=== PATIENT | female | born 1985 | race African-American/Black ===

== ENCOUNTER 2016-08-02 17:19 | Inpatient (IN) | payer MEDICAID ==
[~2016-08-02] VITALS: Ht 175.3 cm; Wt 129.3 kg
[2016-08-02] MEDS: LACTATED RINGER'S 1000 ML INJ 1,000 ML IV SCH (18:40)
[2016-08-02 18:58] LABS: AUTOMATED NEUTROPHIL # 8.1 TH/MM3 (1.8-7.7); BASOPHIL # 0.1 TH/MM3 (0-0.2); BASOPHIL % 0.6 % (0.0-2.0); EOSINOPHIL # 0.1 TH/MM3 (0-0.4); EOSINOPHIL % 0.8 % (0.0-4.0); HEMATOCRIT 31.3 % (35.0-46.0); LYMPH % 25.6 % (9.0-44.0); LYMPHOCYTE # 3.2 TH/MM3 (1.0-4.8); MEAN CELL VOLUME 70.8 FL (80.0-100.0); MEAN CORPUSCULAR HEMOGLOBIN 21.8 PG (27.0-34.0); MEAN CORPUSCULAR HGB CONC 30.8 % (32.0-36.0); MONO % 7.9 % (0.0-8.0); NEUT % 65.1 % (16.0-70.0); PLATELET COUNT 369 TH/MM3 (150-450); RED BLOOD COUNT 4.43 MIL/MM3 (4.00-5.30); RED CELL DISTRIBUTION WIDTH 16.8 % (11.6-17.2); WHITE BLOOD COUNT 12.4 TH/MM3 (4.0-11.0)
[2016-08-02 19:01] LABS: HEMO FLAGS AUTO DIFF
[2016-08-02 19:24] LABS: URIC ACID 3.6 MG/DL (2.6-6.0)
[2016-08-02] MEDS ORDERED: LABETALOL HCL 100 MG/20 ML VIAL IV ONE (19:30)
[2016-08-02 19:43] LABS: OVALOCYTES 1+ (NORMAL); SCAN/DIFF AUTO DIFF CONFIRMED; TEARDROP RBCS 1+ (NORMAL)
[2016-08-02] MEDS ORDERED: LABETALOL HCL 100 MG/20 ML VIAL IV PRN (19:45)
[2016-08-02] MEDS ORDERED: NIFEdipine 10 MG CAP ONE (20:18)
[2016-08-02 20:43] LABS: CHLAMYDIA PCR NOT DETECTED (NOT DETECT); NEISSERIA PCR NOT DETECTED (NOT DETECT)
[2016-08-02] MEDS ORDERED: NIFEdipine 20 MG CAP PO PRN (20:45)
[2016-08-02] MEDS ORDERED: SODIUM CHLORIDE 0.9% FLUSH 10 ML FLUSH IV FLUSH PRN ×2 (20:45)
[2016-08-02] MEDS ORDERED: ACETAMINOPHEN 325 MG TAB PO PRN (20:45)
[2016-08-02] MEDS ORDERED: NIFEdipine 10 MG CAP PO ONE (20:45)
[2016-08-02] MEDS ORDERED: ONDANSETRON ODT 4 MG TAB PO PRN (20:45)
[2016-08-02 21:42] LABS: ANION GAP 10 MEQ/L (5-15); BLOOD UREA NITROGEN 16 MG/DL (7-18); CHLORIDE 107 MEQ/L (98-107); GLOMERULAR FILTRATION RATE 114 ML/MIN (>89); POTASSIUM 4.1 MEQ/L (3.5-5.1); SODIUM (NA) 137 MEQ/L (136-145)
[2016-08-02 21:45] LABS: ALKALINE PHOSPHATASE 73 U/L (45-117); ALT (GPT) 16 U/L (10-53); AST (GOT) 17 U/L (15-37); TOTAL BILIRUBIN ADULT 0.1 MG/DL (0.2-1.0)
[2016-08-03] VITALS (191 sets, daily range): BP systolic 107–191; BP diastolic 50–103; PULSE 67–114; RESP 16–20; TEMP 97.4–98.4; O2SAT 96–100
[2016-08-03] MEDS: LACTATED RINGER'S 1000 ML INJ 1,000 ML IV SCH (06:45)
[2016-08-03] MEDS ORDERED: NIFEdipine 10 MG CAP PO ONE (07:15)
[2016-08-03] MEDS ORDERED: ACETAMIN 325 MG/BUTALBITAL 50 MG/CAFFEINE 40 MG TAB PO PRN (07:15)
[2016-08-03] MEDS ORDERED: MAGNESIUM SULFATE 4 GM PREMIX 100 ML ONE (08:10)
[2016-08-03] MEDS ORDERED: LACTATED RINGER'S 1000 ML INJ 1,000 ML IV SCH ×2 (08:30→17:00)
[2016-08-03] MEDS ORDERED: CALCIUM GLUCONATE 10% 1 GM/10 ML VIAL IV PRN (08:30)
[2016-08-03] MEDS ORDERED: MAGNESIUM SULFATE 4GRAM PRMIX-LOAD DOSE IV ONE (08:30)
[2016-08-03] MEDS: MAGNESIUM SULFATE 40 GM PREMIX 1,000 ML IV SCH (08:49)
[2016-08-03] MEDS ORDERED: MULTIVIT/MIN/PREN/FOL AC/IRON PRENATAL TAB PO SCH (09:00)
[2016-08-03] MEDS ORDERED: LABETALOL HCL 100 MG/20 ML VIAL ONE (10:52)
[2016-08-03] MEDS ORDERED: LABETALOL HCL 100 MG/20 ML VIAL IV ONE ×2 (11:00→17:00)
[2016-08-03] MEDS ORDERED: hydrALAZINE HCL 20 MG/ML VIAL ONE (11:42)
[2016-08-03 11:46] LABS: AMPHETAMINE, URINE NEG (NEG); BARBITURATES, URINE NEG (NEG); COCAINE, URINE NEG (NEG)
[2016-08-03] MEDS ORDERED: LACTATED RINGER'S 1000 ML IV SCH (12:00)
[2016-08-03] MEDS ORDERED: LACTATED RINGER'S 1000 ML IV ONE (12:00)
[2016-08-03] MEDS ORDERED: ceFAZolin 2 GM PREMIX 50 ML IV SCH (12:00)
[2016-08-03] MEDS ORDERED: hydrALAZINE HCL 20 MG/ML VIAL IV ONE (12:00)
[2016-08-03] MEDS ORDERED: CITRIC ACID-SODIUM CITRATE LIQ 30 ML UDC PO SCH (12:00)
--- NOTE | 2016-08-03 12:18 | MH ---
cc: ERICKSON HODGSON M.D. DATE OF ADMISSION 08/02/2016 HISTORY The patient is a 30-year-old black female G3, P1-0-1-1 at approximately 28 weeks and 5 days of . She started her care with Keisha Hopkins, a lay middle school guidance counselor and I started caring for her a little over 10 days ago after meeting her through emergency room covered call at [facility]. At that time, she was 27+ weeks. We diagnosed her with mild preeclampsia with a 24-hour urine collection revealing 700 mg and slightly elevated blood pressures. She was also noted to have a low normal fluid with an AYDEN of 6 and an estimated gestational age and weight measuring about two weeks behind what should be. The patient has consistent periods and had an 18-week ultrasound consistent with her dating. I have been following her as an outpatient since that time with serial urine collection, blood work and testing and when she presented to the office on August 02 for her routine NST and her blood pressure was noted to be elevated in the range of 160-186 over the low 100. At this time, I have recommended that the patient be admitted due to worsening preeclampsia. Her most recent urine collection this past Saturday revealed 1.7 grams. Her blood were continues to be normal. Her amniotic fluid index was 10-1/2. Her estimated weight on Saturday was 2 pounds 2 ounces. The patient has been feeling good at home on bedrest. She denies headaches, changes in vision or nausea or vomiting. PAST MEDICAL HISTORY Past medical history on the patient is negative. PAST SURGICAL HISTORY Gastric bypass in 2006 MEDICATIONS vitamins. ALLERGIES None SOCIAL HISTORY No tobacco, alcohol or drug use. 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 FAMILY HISTORY Family history of diabetes. GYNECOLOGIC HISTORY No abnormal Pap's. She did have a history of syphilis in the past and she had full treatment. OBSTETRICAL HISTORY In 2012, she had a viable female 6 pounds 11 ounces without complication. She also had one early miscarriage. PHYSICAL EXAM On physical exam, her weight is 285, her blood pressure in the office was 170/100, pulse of 70. BREASTS: Without masses, nodes or discharge. CHEST: Clear to auscultation bilaterally. CARDIAC: Regular rate and rhythm without murmur, rub or gallop. ABDOMEN: Gravid, nontender, nondistended. No hepatosplenomegaly. No CVA tenderness. Fundal height is about 28. PELVIC: Cervix is closed and thick. Presenting part is high. LABORATORY VALUES A 24-hour urine has been restarted. CBC, LFTs and uric acid have been ordered from the office this week. Her most recent AYDEN of 10.5. Estimated weight 2 pounds 2 ounces. ASSESSMENT/PLAN The patient has worsening preeclampsia at this time severe by blood pressure. We will admit, do 24-hour monitoring of the fetus, collect urine again, redo blood work and manage blood pressure as needed. The patient is aware that most likely she will be delivered with this admission. MD NENITA Alston/DAVID /11:46 AM /12:08 PM
[2016-08-03] MEDS ORDERED: OXYTOCIN 10 UNIT/ML AMP ONE (12:33)
[2016-08-03] MEDS ORDERED: RESP: CALFACTANT 3 ML VIAL ONE (12:54)
[2016-08-03] MEDS ORDERED: ACETAMINOPHEN 1000 MG/100 ML VIAL IV ONE (12:56)
[2016-08-03] MEDS ORDERED: MORPHINE SULFATE PF 5 MG/10 ML VIAL ONE (13:53)
[2016-08-03] MEDS ORDERED: OXYTOCIN 30 UNITS-500ML PREMIX 500 ML ONE (14:27)
[2016-08-03 15:01] LABS: BASOPHIL % 0.3 % (0.0-2.0); EOSINOPHIL % 0.2 % (0.0-4.0); HEMATOCRIT 28.5 % (35.0-46.0); LYMPHOCYTE # 2.1 TH/MM3 (1.0-4.8); MEAN CELL VOLUME 70.5 FL (80.0-100.0); MEAN CORPUSCULAR HEMOGLOBIN 22.5 PG (27.0-34.0); MEAN CORPUSCULAR HGB CONC 31.9 % (32.0-36.0); MONO % 6.1 % (0.0-8.0); NEUT % 74.4 % (16.0-70.0); PLATELET COUNT 377 TH/MM3 (150-450); RED BLOOD COUNT 4.03 MIL/MM3 (4.00-5.30); WHITE BLOOD COUNT 10.8 TH/MM3 (4.0-11.0)
[2016-08-03 15:06] LABS: HEMO FLAGS AUTO DIFF
[2016-08-03 15:13] LABS: MAGNESIUM 4.6 MG/DL (1.5-2.5); URIC ACID 3.8 MG/DL (2.6-6.0)
[2016-08-03 16:37] LABS: AST (GOT) 21 U/L (15-37)
[2016-08-03 16:40] LABS: ALT (GPT) 17 U/L (10-53); TOTAL BILIRUBIN ADULT LESS THAN 0.1 MG/DL (0.2-1.0)
[2016-08-03 16:42] LABS: ALKALINE PHOSPHATASE 64 U/L (45-117)
[2016-08-03 16:50] LABS: PLATELET ESTIMATE SMEAR NORMAL (NORMAL); PLATELET MORPHOLOGY NORMAL (NORMAL); SCAN/DIFF AUTO DIFF CONFIRMED
[2016-08-03] MEDS ORDERED: [UNRECOGNIZED DRUG - REMARK] XX ONE (17:00)
[2016-08-03] MEDS ORDERED: OXYTOCIN 30 UNITS-500ML PREMIX IV PRN (17:00)
[2016-08-03] MEDS ORDERED: OXYTOCIN 30 UNITS-500ML PREMIX IV ONE (17:00)
[2016-08-03] MEDS ORDERED: oxyCODONE/ACETAMINOPHEN 5 MG/325 MG TAB PO PRN (17:00)
[2016-08-03] MEDS ORDERED: NIFEdipine 20 MG CAP PO ONE (18:00)
[2016-08-03 20:57] LABS: AUTOMATED NEUTROPHIL # 16.3 TH/MM3 (1.8-7.7); BASOPHIL % 0.1 % (0.0-2.0); HEMATOCRIT 31.3 % (35.0-46.0); LYMPH % 7.1 % (9.0-44.0); LYMPHOCYTE # 1.3 TH/MM3 (1.0-4.8); MEAN CELL VOLUME 70.4 FL (80.0-100.0); MEAN CORPUSCULAR HEMOGLOBIN 22.3 PG (27.0-34.0); MEAN CORPUSCULAR HGB CONC 31.7 % (32.0-36.0); MONO % 2.7 % (0.0-8.0); NEUT % 90.1 % (16.0-70.0); PLATELET COUNT 461 TH/MM3 (150-450); RED BLOOD COUNT 4.45 MIL/MM3 (4.00-5.30); RED CELL DISTRIBUTION WIDTH 16.8 % (11.6-17.2); WHITE BLOOD COUNT 18.1 TH/MM3 (4.0-11.0)
[2016-08-03] MEDS: ACETAMINOPHEN 1000 MG/100 ML VIAL IV SCH (21:00)
[2016-08-03 21:02] LABS: HEMO FLAGS AUTO DIFF
[2016-08-03 21:40] LABS: BANDS 2 % (0-6); METAMYELOCYTES 1 % (0-1); NEUTROPHIL # MANUAL DIFF 16.5 TH/MM3 (1.8-7.7); POLYS (SEG NEUTROPHILS) 88 % (16-70); WBC DIFF SAMPLE 100
[2016-08-03 21:41] LABS: PLATELET ESTIMATE SMEAR HIGH (NORMAL); PLATELET MORPHOLOGY NORMAL (NORMAL); SCAN/DIFF FINAL DIFF MANUAL
[2016-08-04] VITALS (159 sets, daily range): BP systolic 109–146; BP diastolic 56–75; PULSE 71–98; RESP 16–20; TEMP 97.7–98.7; O2SAT 98–100
[2016-08-04] MEDS: oxyCODONE/ACETAMINOPHEN 5 MG/325 MG TAB PO PRN ×4 (01:40→19:28)
[2016-08-04 02:25] LABS: AUTOMATED NEUTROPHIL # 17.5 TH/MM3 (1.8-7.7); BASOPHIL # 0.1 TH/MM3 (0-0.2); BASOPHIL % 0.4 % (0.0-2.0); HEMATOCRIT 28.9 % (35.0-46.0); LYMPH % 9.1 % (9.0-44.0); LYMPHOCYTE # 1.9 TH/MM3 (1.0-4.8); MEAN CELL VOLUME 70.5 FL (80.0-100.0); MEAN CORPUSCULAR HEMOGLOBIN 22.5 PG (27.0-34.0); MEAN CORPUSCULAR HGB CONC 31.9 % (32.0-36.0); MONO % 4.8 % (0.0-8.0); NEUT % 85.7 % (16.0-70.0); PLATELET COUNT 416 TH/MM3 (150-450); RED CELL DISTRIBUTION WIDTH 17.5 % (11.6-17.2); WHITE BLOOD COUNT 20.5 TH/MM3 (4.0-11.0)
[2016-08-04 02:31] LABS: HEMO FLAGS AUTO DIFF
[2016-08-04 02:50] LABS: MAGNESIUM 6.2 MG/DL (1.5-2.5)
[2016-08-04 02:54] LABS: URIC ACID 4.3 MG/DL (2.6-6.0)
[2016-08-04 03:04] LABS: PLATELET ESTIMATE SMEAR HIGH (NORMAL); PLATELET MORPHOLOGY NORMAL (NORMAL); SCAN/DIFF AUTO DIFF CONFIRMED
[2016-08-04] MEDS ORDERED: CALNTAB PO (03:35)
[2016-08-04] MEDS: MAGNESIUM SULFATE 40 GM PREMIX 1,000 ML IV SCH (04:30)
[2016-08-04] MEDS: ACETAMINOPHEN 1000 MG/100 ML VIAL IV SCH (04:45)
[2016-08-04] MEDS: NIFEdipine 90 MG SUSTAINED RELEASE TAB PO SCH (08:50)
[2016-08-04 09:36] LABS: AUTOMATED NEUTROPHIL # 14.5 TH/MM3 (1.8-7.7); BASOPHIL % 0.1 % (0.0-2.0); EOSINOPHIL % 0.1 % (0.0-4.0); HEMATOCRIT 28.3 % (35.0-46.0); LYMPH % 12.9 % (9.0-44.0); LYMPHOCYTE # 2.3 TH/MM3 (1.0-4.8); MEAN CORPUSCULAR HEMOGLOBIN 22.2 PG (27.0-34.0); MEAN CORPUSCULAR HGB CONC 31.7 % (32.0-36.0); MONO % 6.8 % (0.0-8.0); NEUT % 80.1 % (16.0-70.0); PLATELET COUNT 428 TH/MM3 (150-450); RED BLOOD COUNT 4.04 MIL/MM3 (4.00-5.30); RED CELL DISTRIBUTION WIDTH 16.8 % (11.6-17.2); WHITE BLOOD COUNT 18.1 TH/MM3 (4.0-11.0)
[2016-08-04 09:38] LABS: HEMO FLAGS AUTO DIFF
[2016-08-04 10:05] LABS: ALKALINE PHOSPHATASE 67 U/L (45-117); ALT (GPT) 18 U/L (10-53); AST (GOT) 19 U/L (15-37); INDIRECT BILIRUBIN 0.1 MG/DL (0.0-0.8); MAGNESIUM 5.9 MG/DL (1.5-2.5); TOTAL BILIRUBIN ADULT 0.2 MG/DL (0.2-1.0); URIC ACID 4.7 MG/DL (2.6-6.0)
[2016-08-04 10:33] LABS: SCAN/DIFF AUTO DIFF CONFIRMED
--- NOTE | 2016-08-04 12:32 | HHI.OB ---
Subjective Post Operative Day: 1 Remarks POD # 1 , pt doing well, no headaches, no visual changes,good pain control Objective Vitals/I&O Vital Signs Date Time Temp Pulse Resp B/P Pulse Ox O2 Delivery O2 Flow Rate FiO2 08/04/16 10:50 79 100 08/04/16 10:45 82 100 08/04/16 10:40 80 100 08/04/16 10:35 87 100 08/04/16 10:30 75 100 08/04/16 10:25 78 100 08/04/16 10:20 76 100 08/04/16 10:15 78 100 08/04/16 10:10 76 100 08/04/16 10:05 79 100 08/04/16 10:01 84 143/56 08/04/16 10:00 80 100 08/04/16 09:55 85 100 08/04/16 09:50 74 99 08/04/16 09:45 74 100 08/04/16 09:40 74 100 08/04/16 09:35 72 100 08/04/16 09:30 85 100 08/04/16 09:25 74 100 08/04/16 09:20 71 100 08/04/16 09:16 72 08/04/16 09:16 130/62 08/04/16 09:15 77 100 08/04/16 09:10 79 100 08/04/16 09:05 85 08/04/16 09:05 100 08/04/16 09:00 100 08/04/16 09:00 82 08/04/16 08:55 80 100 08/04/16 08:50 78 100 08/04/16 08:45 76 100 08/04/16 08:40 74 100 08/04/16 08:35 77 100 08/04/16 08:30 75 100 08/04/16 08:25 97.7 18 08/04/16 08:25 84 100 08/04/16 08:20 74 100 08/04/16 08:15 79 99 08/04/16 07:05 74 98 08/04/16 07:01 76 134/65 08/04/16 07:00 75 98 08/04/16 06:55 74 98 08/04/16 06:50 80 99 08/04/16 06:45 77 99 08/04/16 06:40 78 99 08/04/16 06:35 76 99 08/04/16 06:30 77 99 08/04/16 06:25 77 18 99 08/04/16 06:20 75 08/04/16 06:20 99 08/04/16 06:15 77 08/04/16 06:15 99 08/04/16 06:10 85 08/04/16 06:10 100 08/04/16 06:05 77 100 08/04/16 06:01 76 133/70 08/04/16 06:00 77 100 08/04/16 05:55 75 100 08/04/16 05:50 81 100 08/04/16 05:45 77 100 08/04/16 05:40 76 99 08/04/16 05:35 78 100 08/04/16 05:30 79 100 08/04/16 05:25 78 100 08/04/16 05:23 18 08/04/16 05:20 78 100 08/04/16 05:15 77 100 08/04/16 05:15 18 08/04/16 05:10 95 100 08/04/16 05:05 75 100 08/04/16 05:00 75 08/04/16 05:00 75 141/74 100 08/04/16 05:00 18 08/04/16 04:55 81 99 08/04/16 04:50 84 100 08/04/16 04:45 86 100 08/04/16 04:40 78 100 08/04/16 04:35 81 100 08/04/16 04:30 73 99 08/04/16 04:25 73 99 08/04/16 04:20 72 99 08/04/16 04:15 74 99 08/04/16 04:10 76 100 08/04/16 04:05 74 99 08/04/16 04:01 72 130/64 08/04/16 04:00 77 99 08/04/16 03:55 73 99 08/04/16 03:50 81 100 08/04/16 03:45 82 100 08/04/16 03:40 80 99 08/04/16 03:35 79 99 08/04/16 03:30 77 99 08/04/16 03:25 77 99 08/04/16 03:20 77 99 08/04/16 03:18 16 08/04/16 03:18 98.0 08/04/16 03:15 83 100 08/04/16 03:10 82 99 08/04/16 03:05 75 99 08/04/16 03:01 75 138/64 08/04/16 03:00 18 08/04/16 03:00 84 100 08/04/16 02:55 80 100 08/04/16 02:50 74 100 08/04/16 02:45 76 100 08/04/16 02:40 82 100 08/04/16 02:40 18 08/04/16 02:35 80 100 08/04/16 02:30 82 100 08/04/16 02:25 82 100 08/04/16 02:20 98 100 08/04/16 02:15 100 08/04/16 02:15 83 08/04/16 02:10 100 08/04/16 02:10 82 08/04/16 02:05 100 08/04/16 02:05 79 08/04/16 02:02 79 134/62 08/04/16 02:00 82 08/04/16 02:00 18 08/04/16 02:00 100 08/04/16 01:55 79 100 08/04/16 01:50 83 100 08/04/16 01:45 79 100 08/04/16 01:40 79 100 08/04/16 01:35 83 100 08/04/16 01:30 83 99 08/04/16 01:25 80 99 08/04/16 01:20 99 08/04/16 01:20 80 08/04/16 01:15 81 99 08/04/16 01:10 80 99 08/04/16 01:05 80 99 08/04/16 01:01 79 146/67 08/04/16 01:00 79 99 08/04/16 01:00 18 08/04/16 00:55 82 99 08/04/16 00:50 81 99 08/04/16 00:45 82 99 08/04/16 00:40 80 99 08/04/16 00:35 85 100 08/04/16 00:30 80 99 08/04/16 00:25 79 99 08/04/16 00:20 84 100 08/04/16 00:15 88 99 08/04/16 00:10 80 100 08/04/16 00:05 82 100 08/04/16 00:01 78 140/67 08/04/16 00:00 84 100 08/03/16 23:55 78 100 08/03/16 23:50 75 99 08/03/16 23:45 78 99 08/03/16 23:40 81 99 08/03/16 23:35 79 99 08/03/16 23:30 81 99 08/03/16 23:25 80 100 08/03/16 23:20 80 100 08/03/16 23:15 79 100 08/03/16 23:10 97.9 08/03/16 23:10 86 100 08/03/16 23:05 76 100 08/03/16 23:01 83 16 154/60 08/03/16 23:00 80 100 08/03/16 22:55 78 100 08/03/16 22:50 79 100 08/03/16 22:45 78 100 08/03/16 22:40 81 100 08/03/16 22:35 79 100 08/03/16 22:30 81 100 08/03/16 22:25 80 100 08/03/16 22:20 82 100 08/03/16 22:15 80 100 08/03/16 22:10 87 100 08/03/16 22:09 18 08/03/16 22:05 88 100 08/03/16 22:01 84 138/52 08/03/16 22:00 91 18 99 08/03/16 21:55 85 100 08/03/16 21:50 87 100 08/03/16 21:45 86 100 08/03/16 21:35 84 100 08/03/16 21:30 89 100 08/03/16 21:25 86 100 08/03/16 21:20 92 100 08/03/16 21:15 91 100 08/03/16 21:10 90 100 08/03/16 21:05 88 100 08/03/16 21:01 90 140/56 08/03/16 21:00 89 100 08/03/16 21:00 18 08/03/16 20:55 85 100 08/03/16 20:50 85 100 08/03/16 20:45 82 100 08/03/16 20:40 89 100 08/03/16 20:35 86 100 08/03/16 20:30 86 100 08/03/16 20:25 86 100 17 20:20 85 100 08/03/16 20:15 91 100 08/03/16 20:10 86 100 08/03/16 20:05 87 100 17 20:01 87 124/54 08/03/16 20:00 88 100 08/03/16 19:55 89 100 08/03/16 19:50 90 100 17 19:45 90 100 08/03/16 19:40 88 100 08/03/16 19:37 97.8 08/03/16 19:35 18 08/03/16 19:35 93 100 08/03/16 19:30 93 100 08/03/16 19:25 94 100 08/03/16 19:20 94 100 08/03/16 19:15 94 100 08/03/16 19:11 96 112/62 08/03/16 19:10 97 99 08/03/16 19:05 98 99 08/03/16 19:01 92 08/03/16 19:00 95 100 08/03/16 18:55 93 100 08/03/16 18:50 94 100 08/03/16 18:45 95 100 08/03/16 18:40 97 100 08/03/16 18:35 111 100 08/03/16 18:31 18 08/03/16 18:30 104 100 08/03/16 18:28 101 119/56 08/03/16 18:25 103 100 08/03/16 18:20 98 100 08/03/16 18:15 73 100 08/03/16 18:10 74 100 08/03/16 18:05 75 100 08/03/16 18:01 67 179/91 08/03/16 18:00 76 100 17 17:55 81 100 17 17:50 76 100 17 17:45 74 100 08/03/16 17:40 81 100 17 17:35 73 100 08/03/16 17:34 72 176/95 17 17:33 16 08/03/16 17:30 78 100 17 17:25 74 100 08/03/16 17:20 75 100 08/03/16 17:15 74 100 08/03/16 17:10 78 100 08/03/16 17:05 75 100 08/03/16 17:01 73 161/94 08/03/16 17:00 73 100 08/03/16 16:55 75 100 08/03/16 16:50 75 100 08/03/16 16:31 68 167/89 08/03/16 16:30 74 100 08/03/16 16:30 16 08/03/16 16:25 72 100 08/03/16 16:20 74 100 08/03/16 16:15 73 100 08/03/16 16:10 74 100 08/03/16 16:05 74 100 08/03/16 16:01 75 161/86 08/03/16 16:00 76 100 08/03/16 15:55 77 100 08/03/16 15:50 80 100 08/03/16 15:45 73 100 08/03/16 15:40 68 100 08/03/16 15:35 68 08/03/16 15:30 67 18 160/89 100 08/03/16 15:30 97.4 08/03/16 15:12 97.7 08/03/16 15:05 75 18 128/74 98 08/03/16 14:47 67 16 124/70 98 08/03/16 14:42 73 16 119/69 98 08/03/16 14:15 74 18 117/69 97 08/03/16 14:00 73 18 97 08/03/16 14:00 118/69 08/03/16 13:45 97.7 96 08/03/16 13:45 78 20 107/62 Result Diagram: 08/04/16 0901 08/02/16 1830 Objective Remarks GENERAL: Well-nourished, well-developed patient. CARDIOVASCULAR: Regular rate and rhythm without murmurs, gallops, or rubs. RESPIRATORY: Breath sounds equal bilaterally. No accessory muscle use. ABDOMEN/GI: Abdomen soft, non-tender, bowel sounds present. Incision: Clean, dry and intact. Fundus: Firm, non-tender at umbilicus. GENITOURINARY: Light to moderate bleeding. EXTREMITIES: No cyanosis or edema, non-tender, without signs of DVT. Medications and IVs Current Medications Medications (Trade) Dose Ordered Sig/Valorie Route Start Time Stop Time Status Last Admin (Stuartnatal Plus 3 ) 1 tab DAILY PO 08/03/16 09:00 Acetaminophen/ Butalbital/ Caffeine 1 tab 1 tab Q6HR PRN PO 08/03/16 07:15 08/03/16 07:38 Magnesium Sulfate 1,000 ml @ 50 mls/hr Q20H IV 08/03/16 08:30 08/04/16 04:30 (Lr 1000 ml Inj) 1,000 ml @ 100 mls/hr Q10H IV 08/03/16 17:00 08/04/16 12:59 (Percocet 5-325 Mg) 1 tab Q4H PRN PO 08/03/16 17:00 (Percocet 5-325 Mg) 2 tab Q4H PRN PO 08/03/16 17:00 08/04/16 08:21 (M-M-R Ii Inj) 0.5 ml ONCE ONCE SQ 08/04/16 16:00 08/04/16 16:01 (Boostrix Inj) 0.5 ml ONCE ONCE IM 08/04/16 16:00 08/04/16 16:01 (Procardia Xl) 90 mg DAILY PO 08/04/16 09:00 08/04/16 08:50 Assessment/Plan Assessment and Plan stop iv mag now, d/c jo ann, regular diet, routine post op care Discharge Planning discharge next 2 dys depending on progress Ashlee Caro MD Aug 04, 2016 12:31
[2016-08-04] MEDS ORDERED: DIPHTH/TETANUS/ACEL PERTUSSIS (BOOSTER) 0.5 ML VIAL/PFS IM ONE (16:00)
[2016-08-04] MEDS ORDERED: MEASLES, MUMPS, RUBELLA VACCINE 0.5 ML VIAL SQ ONE (16:00)
[2016-08-05] VITALS: BP 135/79; PULSE 83; RESP 17; TEMP 98.1
[2016-08-05] MEDS: oxyCODONE/ACETAMINOPHEN 5 MG/325 MG TAB PO PRN ×3 (00:10→09:03)
[2016-08-05 04:00] VITALS: BP 126/72; PULSE 89; RESP 16; TEMP 98.3
[2016-08-05 08:00] VITALS: BP 126/76; PULSE 91; RESP 16; RESP 9; TEMP 98.6
--- NOTE | 2016-08-05 08:18 | HHI.OB ---
Subjective Post Operative Day: 2 Remarks Pt doing well, no headache, tolerating po, wants to leave to see baby Objective Vitals/I&O Vital Signs Date Time Temp Pulse Resp B/P Pulse Ox O2 Delivery O2 Flow Rate FiO2 08/05/16 08:00 16 08/05/16 08:00 98.6 9 08/05/16 08:00 91 126/76 08/05/16 04:00 98.3 89 16 08/05/16 04:00 126/72 08/05/16 00:00 98.1 83 17 135/79 08/04/16 19:30 98.7 90 18 116/62 08/04/16 16:00 99 08/04/16 16:00 98.5 94 20 08/04/16 16:00 109/60 08/04/16 13:00 80 08/04/16 13:00 78 137/75 100 08/04/16 13:00 98.2 08/04/16 12:55 76 100 08/04/16 12:50 78 100 08/04/16 12:45 79 100 08/04/16 12:40 78 100 08/04/16 12:35 84 08/04/16 12:35 100 08/04/16 12:30 100 08/04/16 12:30 87 08/04/16 12:25 100 08/04/16 12:25 78 08/04/16 12:24 20 08/04/16 12:22 80 133/70 08/04/16 12:20 78 100 08/04/16 12:15 86 100 08/04/16 12:10 85 100 08/04/16 12:05 89 100 08/04/16 12:00 85 100 08/04/16 11:55 90 100 08/04/16 11:50 92 99 08/04/16 11:45 90 100 08/04/16 11:40 79 100 08/04/16 11:35 80 100 08/04/16 11:30 80 100 08/04/16 11:25 79 100 08/04/16 11:20 79 100 08/04/16 11:15 81 100 08/04/16 11:10 79 100 08/04/16 11:05 75 100 08/04/16 11:00 75 100 08/04/16 10:55 75 100 08/04/16 10:50 79 100 08/04/16 10:45 82 100 08/04/16 10:40 80 100 08/04/16 10:35 87 100 08/04/16 10:30 75 100 08/04/16 10:25 78 100 08/04/16 10:20 76 100 08/04/16 10:15 78 100 08/04/16 10:10 76 100 08/04/16 10:05 79 100 08/04/16 10:01 84 143/56 08/04/16 10:00 80 100 08/04/16 09:55 85 100 08/04/16 09:50 74 99 08/04/16 09:45 74 100 08/04/16 09:40 74 100 08/04/16 09:35 72 100 08/04/16 09:30 85 100 08/04/16 09:25 74 100 08/04/16 09:20 71 100 08/04/16 09:16 72 08/04/16 09:16 130/62 08/04/16 09:15 77 100 08/04/16 09:10 79 100 08/04/16 09:05 85 08/04/16 09:05 100 08/04/16 09:00 100 08/04/16 09:00 82 08/04/16 08:55 80 100 08/04/16 08:50 78 100 08/04/16 08:45 76 100 08/04/16 08:40 74 100 08/04/16 08:35 77 100 08/04/16 08:30 75 100 08/04/16 08:25 97.7 18 08/04/16 08:25 84 100 08/04/16 08:20 74 100 Result Diagram: 08/04/16 0901 08/02/16 1830 Objective Remarks GENERAL: Well-nourished, well-developed patient. CARDIOVASCULAR: Regular rate and rhythm without murmurs, gallops, or rubs. RESPIRATORY: Breath sounds equal bilaterally. No accessory muscle use. ABDOMEN/GI: Abdomen soft, non-tender, bowel sounds present. Incision: Clean, dry and intact. Fundus: Firm, non-tender at umbilicus. GENITOURINARY: Light to moderate bleeding. EXTREMITIES: No cyanosis or edema, non-tender, without signs of DVT. Medications and IVs Current Medications Medications (Trade) Dose Ordered Sig/Valorie Route Start Time Stop Time Status Last Admin (Stuartnatal Plus 3 ) 1 tab DAILY PO 08/03/16 09:00 (Fioricet 325-50-40) 1 tab Q6HR PRN PO 08/03/16 07:15 08/03/16 07:38 (Percocet 5-325 Mg) 1 tab Q4H PRN PO 08/03/16 17:00 (Percocet 5-325 Mg) 2 tab Q4H PRN PO 08/03/16 17:00 08/05/16 04:06 (Procardia Xl) 90 mg DAILY PO 08/04/16 09:00 08/04/16 08:50 Assessment/Plan Assessment and Plan stop iv mag now, d/c cherry, regular diet, routine post op care Discharge Planning discharge next 2 dys depending on progress Attending Attestation will discharge home on a lower dose of procardia today Ashlee Caro MD Aug 05, 2016 08:18
[2016-08-05] MEDS: NIFEdipine 90 MG SUSTAINED RELEASE TAB PO SCH (09:03)
[2016-08-06 15:03] LABS: RAPID PLASMA REAGIN SCREEN REACTIVE (NON-REACTVE)
--- NOTE | 2016-08-08 08:47 | MP ---
cc: ERICKSON HODGSON M.D. DATE OF SURGERY 08/03/2016 PREOPERATIVE DIAGNOSIS An intrauterine at 28 weeks and 6 days gestation with severe preeclampsia. POSTOPERATIVE DIAGNOSIS An intrauterine at 28 weeks and 6 days gestation with severe preeclampsia. PROCEDURE PERFORMED Primary low transverse section with classical extension BRASS SORTER Dr. Erickson Hodgson ANESTHESIA Spinal FINDINGS IN SURGERY Included a viable female infant weighing 868 grams with 's 4, 5 and 7, with normal appearing tubes and ovaries with a very small uterus and a lower segment that just did not allow me to deliver the baby safely so a classical extension had to be done. BLOOD LOSS About 800 cc. COMPLICATIONS Just the classical extension PROCEDURE IN DETAIL After proper consents were obtained, blood had been typed and screened. The patient was taken to the operating room where a spinal anesthetic was placed. She was then placed in the dorsal position, sterilely prepped and draped. She already had a Gaitan catheter placed. At this time, we made a Pfannenstiel skin incision with a sharp knife. This was carried down to the fascia using the Bovie cautery. The fascia was nicked in the midline, extended superolaterally on each side. There was blunt dissection of the muscles off of the fascia, then identified the peritoneum, grasped with two hemostats and entered sharply with the Metzenbaum scissors. This was extended superiorly inferiorly paying close attention to the bladder. Bladder blade was placed. Bladder flap was developed bladder, blade was replaced. I made a transverse incision in the lower uterine segment which was not very well developed. I extended that using the finger fracture technique. Rupture of membranes revealed clear fluid. It was a vertex presentation, but with fundal pressure and trying to deliver the vertex, it moved off to the right side. It was very difficult to then regain the vertex and I really had limited mobility in trying to deliver the breech, so I made the decision that I had to extend the incision with the bandage scissors and I extended it in the classical fashion because there was no real uterine segment. I then was able to pull out the breech and easily deliver the legs, rotate to the dorsal side up and then sweep the hands and arms across the face and chest and deliver the vertex. Bulb suction to the oropharynx and the nares per the NICU in attendance. We waited 45 seconds for cord clamping, milking the cord blood to the . We then clamped with cord, cut in between and the was handed to the team in attendance. A viable female weighing 868 grams with 's 4, 5 and 7. At this time, cord blood was obtained. Placenta was removed and sent for pathology. The uterus was exteriorized and wiped clean of clots and debris. I closed the low transverse incision using a 1-0 chromic starting at each apex and meeting in the midline with good hemostasis. I then closed the classical extension using interrupted sutures of the 1-0 chromic in three layers and then I closed the serosa of the uterus using a 3-0 Vicryl in a baseball stitch. Excellent hemostasis was noted. We placed the uterus back into the abdominal cavity. I overlaid the classical incision with Interceed. I then reapproximated the muscles using a #1 chromic suture x1. I then closed the fascia using a 0 Vicryl starting at each apex and meeting in the midline in a running fashion. Irrigation was performed the subcu. Hemostasis was achieved with the Bovie cautery and skin was closed with kodak. All counts were correct and the patient was stable to the recovery room. MD NENITA Alston/DAVID /8:21 AM /8:27 AM
== END 2016-08-05 09:26 | disposition home or self-care (01) | DRG 766 ==
LOC: H2EA 17:19 → H1EA 08-04 15:24
PROVIDERS: ADMIT Obstetrics & Gynecology; ATTEND Obstetrics & Gynecology
PROC: 10D00Z1 Extraction of Products of Conception, Low, Open Approach (ICD-10-PCS; principal; 2016-08-03)
PROC: 10907ZC Drainage of Amniotic Fluid, Therapeutic from Products of Conception, Via Natural or Artificial Opening (ICD-10-PCS; 2016-08-03)
DX: O14.04 Mild to moderate pre-eclampsia, complicating childbirth (principal); Z37.0 Single live birth; Z3A.28 28 weeks gestation of pregnancy; Z98.84 Bariatric surgery status
CPT/HCPCS: 59025; 76937; 80053; 80074; 80076; 80307; 83735; 84550; 85007; 85025; 85027; 86592; 86593; 86703; 86850; 86900; 86901; 87081; 87150; 87491; 87591; 88307; C1765; J0131; J0360; J0690; J2274; J2590; J3475; J7120

== ENCOUNTER 2017-04-05 08:27 | Emergency (ER) | payer MEDICAID ==
[~2017-04-05] VITALS: Ht 175.3 cm; Wt 129.0 kg
[~2017-04-05 08:27] MED LIST: CALNTAB PO
[2017-04-05 08:31] VITALS: BP 126/75; PULSE 91; RESP 16; TEMP 98; O2SAT 99
[2017-04-05] MEDS ORDERED: PRED20 PO (09:20)
[2017-04-05] MEDS ORDERED: VENTAER INH (09:20)
[2017-04-05] MEDS ORDERED: AZIT250T3 PO (09:20)
--- NOTE | 2017-04-05 09:21 | PD ---
HPI Chief Complaint: Cold / Flu Symptoms Time Seen by Provider: 09:11 Travel History International Travel<30 days: No Contact w/Intl Traveler<30days: No Traveled to known affect area: No History of Present Illness HPI 31-year-old female here for evaluation of productive cough 2 weeks. She reports she has yellow/green sputum. Subjective fevers. She denies chest pain , shortness breath. Reports occasional wheezing. Symptoms are unrelieved with OTC cough medication. PFSH Past Medical History Medical History: Denies Significant Hx ?: Not Past Surgical History Section: Yes Social History Alcohol Use: Yes (DAILY) Tobacco Use: No Substance Use: No Allergies-Medications (Allergen,Severity, Reaction): Coded Allergies: No Known Allergies (Unverified Adverse Reaction, Unknown, 04/05/17) Reported Meds & Prescriptions Reported Meds & Active Scripts Active No Active Prescriptions or Reported Medications Review of Systems Except as stated in HPI: all other systems reviewed are Neg General / Constitutional: Positive: Fever Respiratory: Positive: Cough, Wheezing Physical Exam Narrative GENERAL: Well-nourished, well-developed patient. SKIN: Focused skin assessment warm/dry. HEAD: Normocephalic. EYES: No scleral icterus. No injection or drainage. NECK: Supple, trachea midline. No JVD or lymphadenopathy. CARDIOVASCULAR: Regular rate and rhythm without murmurs, gallops, or rubs. RESPIRATORY: Breath sounds equal bilaterally. No accessory muscle use. Heart sounding cough with rhonchi GASTROINTESTINAL: Abdomen soft, non-tender, nondistended. Data Data Last Documented VS Vital Signs Date Time Temp Pulse Resp B/P (MAP) Pulse Ox O2 Delivery O2 Flow Rate FiO2 04/05/17 08:31 98.0 91 16 126/75 (92) 99 MDM Medical Decision Making Medical Screen Exam Complete: Yes Emergency Medical Condition: Yes Differential Diagnosis Bronchitis, pneumonia, influenza Narrative Course 31-year-old female here for evaluation of productive cough 2 weeks. She is reporting subjective fevers. On exam she has a harsh sounding cough and rhonchi. She is nontoxic-appearing. Vital signs stable. Diagnosis Primary Impression: Bronchitis Referrals: Primary Care Physician Additional Instructions: Take the Medication as prescribed. Stay well hydrated by treating plenty of fluids. Follow-up with her primary doctor. Scripts Albuterol 18 GM Inh (Ventolin Hfa 18 GM Inh) 90 Mcg/Act Aer 2 PUFF INH Q4-6H Y for SHORTNESS OF BREATH, #1 INHALER 0 Refills Prov: Elsie Persaud 04/05/17 Prednisone (Prednisone) 20 Mg Tab 40 MG PO DAILY, #10 TAB 0 Refills Take 40 mg (2 tablets) daily for 5 days Prov: Elsie Persaud 04/05/17 Azithromycin (Azithromycin) 250 Mg Tab 250 MG PO DIRECTED for Infection, #6 TAB 0 Refills Take 2 tabs (500 mg) on day 1 then 1 tab daily x 4 days. Prov: Elsie Persaud 04/05/17 Disposition: 01 DISCHARGE HOME Condition: Stable Elsie Persaud Apr 05, 2017 09:21
== END 2017-04-05 09:27 | disposition home or self-care (01) ==
LOC: PHEFT 08:27
DX: J40 Bronchitis, not specified as acute or chronic (principal)
CPT/HCPCS: 99284

== ENCOUNTER 2017-10-28 23:39 | Emergency (ER) | payer MEDICAID, OTHER ==
[~2017-10-28] VITALS: Ht 175.3 cm; Wt 106.6 kg
[~2017-10-28 23:39] MED LIST changes: +AZIT250T3 PO; -CALNTAB PO; +PRED20 PO; +VENTAER INH
[2017-10-28 23:49] VITALS: BP 149/88; PULSE 73; TEMP 98.4; O2SAT 100
[2017-10-29] MEDS ORDERED: PRED20 PO (00:15)
[2017-10-29] MEDS ORDERED: PROM6.256 PO (00:15)
[2017-10-29] MEDS ORDERED: ALBUAER3 INH (00:15)
--- NOTE | 2017-10-29 00:15 | PD ---
HPI Chief Complaint: Cold / Flu Symptoms Time Seen by Provider: 00:07 Travel History International Travel<30 days: No Contact w/Intl Traveler<30days: No Traveled to known affect area: No History of Present Illness HPI This is a 32-year-old female who presents to the emergency department with a cough that has been going on for 2 weeks, constant, moderate severity, worse in the evenings, nonproductive. She had a fever at the beginning of her illness but not now and she denies any sputum production. She did have some rhinorrhea initially but that has resolved. She comes in because her cough is not improving and it has been keeping her up at night. She did recently start smoking in April because she has been under a lot of stress. PFSH Past Medical History Tetanus Vaccination: > 5 Years Influenza Vaccination: No ?: Not Past Surgical History Section: Yes Social History Alcohol Use: Yes ([facility] ) Tobacco Use: No Substance Use: Yes ([place] 1-2 times weekly) Allergies-Medications (Allergen,Severity, Reaction): Coded Allergies: No Known Allergies (Unverified Adverse Reaction, Unknown, 04/05/17) Reported Meds & Prescriptions Reported Meds & Active Scripts Active Prednisone 20 Mg Tab 40 Mg PO DAILY Take 40 mg (2 tablets) daily for 5 days Azithromycin 250 Mg Tab 250 Mg PO DIRECTED Take 2 tabs (500 mg) on day 1 then 1 tab daily x 4 days. Ventolin Hfa 18 GM Inh (Albuterol Sulfate) 90 Mcg/Act Aer 2 Puff INH Q4-6H PRN Review of Systems Except as stated in HPI: all other systems reviewed are Neg Physical Exam Narrative GENERAL:Well appearing, no acute distress SKIN: Focused skin assessment warm and dry. HEAD: Atraumatic. Normocephalic. EYES: Pupils equal and round. No injection or drainage. ENT: Moist mucous membranes NECK: Trachea midline. CARDIOVASCULAR: Regular rate and rhythm. No murmur appreciated. RESPIRATORY: Diffuse expiratory wheezing, no increased work of breathing GASTROINTESTINAL: Abdomen soft, non-tender, nondistended. MUSCULOSKELETAL: No obvious deformities. NEUROLOGICAL: Awake and alert. No obvious cranial nerve deficits. Moving all extremities. PSYCHIATRIC: Appropriate mood and affect; insight and judgment normal. Data Data Last Documented VS Vital Signs Date Time Temp Pulse Resp B/P (MAP) Pulse Ox O2 Delivery O2 Flow Rate FiO2 10/28/17 23:49 98.4 73 149/88 (108) 100 MDM Medical Decision Making Medical Screen Exam Complete: Yes Emergency Medical Condition: Yes Differential Diagnosis Bronchitis, pneumonia, acute asthma exacerbation Narrative Course This is a 32-year-old female who presents to the emergency department with a persistent cough for 2 weeks. She does smoke cigarettes. She is diffusely wheezing on exam but has no fever or purulent sputum production. I think patient would benefit from prednisone and bronchodilator treatment. She was also given codeine cough suppressant for evenings. I do not think she requires any imaging and she has no hypoxia. She will be discharged home. Diagnosis Primary Impression: Bronchitis Patient Instructions: General Instructions Additional Instructions: If you develop severe chest pain, shortness of breath, sweating, lightheadedness , dizziness or difficulty breathing return to the emergency department immediately. Followup with your primary care physician in 2-3 days if your symptoms are not resolved. Med/Other Pt SpecificInfo: Prescription(s) given Scripts Promethazine-Codeine Liq (Promethazine-Codeine Liq) 6.25-10 Mg/5 Ml Syrp 5-10 ML PO Q6H Y for COUGH AND/OR COLD SYMPTOMS, #60 ML 0 Refills Prov: Kayla Rojas MD 10/29/17 Albuterol 8.5 GM Inh (Proair Hfa 8.5 GM Inh) 90 Mcg/Act Aer 2 PUFF INH Q4-6H Y for SHORTNESS OF BREATH, #1 INHALER 0 Refills 108 mcg/actuation Prov: Kayla Rojas MD 10/29/17 Prednisone (Prednisone) 20 Mg Tab 40 MG PO DAILY, #10 TAB 0 Refills Take 40 mg (2 tablets) daily for 5 days Prov: Kayla Rojas MD 10/29/17 Disposition: 01 DISCHARGE HOME Condition: Stable Kayla Rojas MD Oct 29, 2017 00:15
[2017-10-29] MEDS ORDERED: PROMETHAZINE/CODEINE 6.25 MG/10 MG/5 ML CUP PO ONE (00:30)
== END 2017-10-29 00:35 | disposition home or self-care (01) ==
LOC: PHED 23:39
DX: J40 Bronchitis, not specified as acute or chronic (principal)
CPT/HCPCS: 99283